=== PATIENT | male | born 1970 | race Caucasian/White ===

== ENCOUNTER 2017-06-24 16:19 | Emergency (ER) | payer OTHER ==
[~2017-06-24] VITALS: Ht 185.4 cm; Wt 95.3 kg
[~2017-06-24 16:19] MED LIST: BIAXIN500 MG PO; CLARITIN10 MG PO; MOTRIN800 MG PO; ULTRAM50 MG PO
[2017-06-24 17:32] LABS: BASO % 0.1 % (0.0-1.0); EOS # 0.1 10*3/uL (0.0-0.4); EOS % 1.5 % (1.0-4.0); HEMOGLOBIN 13.4 g/dl (14.0-18.0); LYMPH # 1.8 10*3/uL (1.3-4.4); LYMPH % 25.7 % (27.0-41.0); MEAN CELL VOLUME 89.2 fl (80.0-94.0); MEAN CORPUSCULAR HGB 30.7 pg (27.0-31.0); MEAN CORPUSCULAR HGB CONC 34.4 g/dl (33.0-37.0); MEAN PLATELET VOLUME 9.8 fl (9.6-12.3); MONO # 0.4 10*3/uL (0.1-1.0); MONO % 5.1 % (3.0-9.0); NEUT # 4.6 10*3/uL (2.3-7.9); NEUT % 67.3 % (47.0-73.0); PLATELET COUNT AUTOMATED 237 10*3/uL (130-400); RED BLOOD COUNT 4.37 10*6/uL (4.50-5.90); RED CELL DISTRI WIDTH 13.9 % (0-14.5); WHITE BLOOD COUNT 6.9 10*3/uL (4.8-10.8)
[2017-06-24 17:47] LABS: ALBUMIN 3.4 gm/dl (3.1-4.5); ALKALINE PHOSPHATASE 100 U/L (45-117); BUN 13 mg/dl (7-24); CHLORIDE 105 mmol/L (98-107); CREATININE 0.79 mg/dL (0.70-1.30); POTASSIUM 3.7 mmol/L (3.5-5.1); SGOT/AST 15 IU/L (3-35); SGPT/ALT 27 U/L (12-78); SODIUM 139 mmol/L (136-145)
== END 2017-06-24 19:42 | disposition home or self-care (01) ==
LOC: ED 16:19
PROVIDERS: Nurse Practitioner Family
DX: L02.415 Cutaneous abscess of right lower limb (principal); E11.9 Type 2 diabetes mellitus without complications; Z98.890 Other specified postprocedural states

== ENCOUNTER 2017-09-19 10:29 | Emergency (ER) | payer OTHER ==
[~2017-09-19] VITALS: Ht 185.4 cm; Wt 90.7 kg
[2017-09-19] MEDS ORDERED: GLYBURIDE5 MG PO (10:35)
[2017-09-19] MEDS ORDERED: NAPROSYN500 MG PO (11:16)
== END 2017-09-19 12:08 | disposition home or self-care (01) ==
LOC: ED 10:29
DX: S93.601A Unspecified sprain of right foot, initial encounter (principal); R03.0 Elevated blood-pressure reading, without diagnosis of hypertension; X50.1XXA Overexertion from prolonged static or awkward postures, initial encounter; Y93.89 Activity, other specified; Y92.89 Other specified places as the place of occurrence of the external cause; Y99.8 Other external cause status

== ENCOUNTER 2017-10-26 17:58 | Emergency (ER) | payer OTHER ==
[~2017-10-26] VITALS: Ht 185.4 cm; Wt 90.7 kg
[~2017-10-26 17:58] MED LIST changes: +GLYBURIDE5 MG PO; +NAPROSYN500 MG PO
[2017-10-26] MEDS ORDERED: EPIPEN 2-P0.3 MG/0.3 IJ (18:16)
[2017-10-26] MEDS ORDERED: CLARITIN10 MG PO (18:16)
[2017-10-26] MEDS ORDERED: PEPCID AC20 MG PO (18:16)
[2017-10-26] MEDS ORDERED: DELTASONE20 M1 PO (18:16)
== END 2017-10-26 18:27 | disposition home or self-care (01) ==
LOC: ED 17:58
DX: T63.441A Toxic effect of venom of bees, accidental (unintentional), initial encounter (principal); R22.0 Localized swelling, mass and lump, head; E11.9 Type 2 diabetes mellitus without complications; I10 Essential (primary) hypertension; Z87.891 Personal history of nicotine dependence; Z91.030 Bee allergy status; Y92.89 Other specified places as the place of occurrence of the external cause

== ENCOUNTER 2017-11-19 06:44 | Inpatient (IN) | payer OTHER ==
[~2017-11-19] VITALS: Ht 185.4 cm; Wt 96.2 kg
[2017-11-19] VITALS (18 sets, daily range): BP systolic 132–199; BP diastolic 61–97
--- NOTE | ~2017-11-19 | O ---
[place], [place] OPERATIVE NOTE NAME: MATTI WILLIS UNIT #: [id number] ROOM: 525 DOCTOR: MIN SELLERS MD BIRTHDATE: [birth year] DOS: 11/19/2017 PREOPERATIVE DIAGNOSIS: Acute cholecystitis. POSTOPERATIVE DIAGNOSIS: Acute cholecystitis. PROCEDURE: Laparoscopic cholecystectomy. SURGEON: Min Sellers MD [employer] INSTALLER: ALLIE. ANESTHESIA: General with endotracheal intubation. INDICATIONS: This is a 47-year-old male admitted with right upper quadrant pain. Ultrasound and labs show acute cholecystitis. It was decided to take the patient to the operating room for the above-mentioned procedure. The procedure and its complications were explained to the patient in detail preoperatively. Complications that were discussed included but were not limited to bleeding, infection, hematoma/seroma/abscess formation, biloma formation, prolonged postoperative pain, damage to underlying vital structures, inadvertent injury to common bile duct and he agreed to proceed. DESCRIPTION OF PROCEDURE: After identifying the patient, the patient was brought to the operating suite and laid in the supine position. After induction of general anesthesia, a timeout procedure was called and the parts were then painted and draped in the usual sterile fashion. An incision below the umbilicus was made in a transverse fashion. The skin and the subcutaneous tissue incised in the line of the incision. The fascia was incised and 2 stay sutures with 0 Vicryl were taken on either side. The peritoneum was opened and 12 mm Aide port was introduced. A pneumoperitoneum was created. Under direct vision, an epigastric incision of 10 mm and two 5 mm incisions were made in the right upper quadrant and appropriate size ports were introduced. The gallbladder was found to be distended and edematous. Approximately 30 mL of bile was aspirated. The gallbladder was retracted superiorly and laterally. The cystic duct and the cystic artery were carefully dissected until the triangle of Calot was identified and the critical view of safety was obtained. Thereafter, each of these structures were clipped 3 times and cut between the first and the second clip. The gallbladder was then removed from the bed of the gallbladder with the help of electrocautery. It was placed in an EndoCatch bag and removed from the peritoneal cavity and sent for histopathological diagnosis. Thereafter, the liver bed was inspected for bleeding and there was no bleeding seen. The spilled blood and fluid were sucked away and after hemostasis was confirmed, the right upper quadrant and epigastric ports were removed and there was no bleeding seen. The umbilical port was also removed and 2 stay sutures were tied together and an additional stitch was taken in order to close the fascia. Thereafter, local anesthesia was infiltrated in all the 4 incisions (1% plain lidocaine) and the incision was then approximated with help of 4-0 Vicryl in a subcuticular running fashion. Dressings were placed. The patient tolerated the procedure well and was extubated uneventfully and brought back to [place], [place] OPERATIVE NOTE NAME: MATTI WILLIS UNIT #: [id number] ROOM: [facility] DOCTOR: MIN SELLERS MD BIRTHDATE: [birth year] the recovery room in stable fashion. There were no complications. Dr. Min Sellers, the attending surgeon, was present throughout the operating case. Min Sellers MD CM:OPRECORD:OPERATIVE NOTE [id number] MIN SELLERS MD 11/19/17 1441 interface
[~2017-11-19 06:44] MED LIST changes: +DELTASONE20 M1 PO; +EPIPEN 2-P0.3 MG/0.3 IJ; +PEPCID AC20 MG PO
[2017-11-19 07:43] LABS: BASO % 0.2 % (0.0-1.0); EOS # 0.1 10*3/uL (0.0-0.4); EOS % 0.8 % (1.0-4.0); HEMOGLOBIN 12.7 g/dl (14.0-18.0); LYMPH # 1.7 10*3/uL (1.3-4.4); LYMPH % 17.1 % (27.0-41.0); MEAN CELL VOLUME 89.2 fl (80.0-94.0); MEAN CORPUSCULAR HGB 29.8 pg (27.0-31.0); MEAN CORPUSCULAR HGB CONC 33.4 g/dl (33.0-37.0); MONO # 0.4 10*3/uL (0.1-1.0); MONO % 4.3 % (3.0-9.0); NEUT # 7.7 10*3/uL (2.3-7.9); NEUT % 77.2 % (47.0-73.0); PLATELET COUNT AUTOMATED 229 10*3/uL (130-400); RED BLOOD COUNT 4.26 10*6/uL (4.50-5.90); RED CELL DISTRI WIDTH 14.2 % (0-14.5); WHITE BLOOD COUNT 9.9 10*3/uL (4.8-10.8)
[2017-11-19 07:51] LABS: ACT PARTIAL THROMBO TIME 23.9 SECONDS (20.8-31.5)
[2017-11-19 07:57] LABS: ALBUMIN 3.3 gm/dl (3.1-4.5); ALKALINE PHOSPHATASE 98 U/L (45-117); BUN 10 mg/dl (7-24); CHLORIDE 110 mmol/L (98-107); LIPASE 211 U/L (73-393); POTASSIUM 3.8 mmol/L (3.5-5.1); SGOT/AST 8 IU/L (3-35); SGPT/ALT 21 U/L (12-78); SODIUM 138 mmol/L (136-145); TOTAL PROTEIN 6.8 gm/dL (6.4-8.2); TROPONIN I < 0.015 ng/ml (<0.045)
[2017-11-19 08:50] LABS: BILIRUBIN NEGATIVE (NEGATIVE); BLOOD TRACE-INTACT (NEGATIVE); CLARITY CLEAR (CLEAR); COLOR YELLOW (YELLOW); GLUCOSE NEGATIVE (NEGATIVE); KETONE NEGATIVE (NEGATIVE); LEUKO ESTERASE NEGATIVE (NEGATIVE); NITRITE NEGATIVE (NEGATIVE); SPECIFIC GRAVITY >= 1.030 (1.005-1.030); UROBILINOGEN 0.2 E.U./dl (0.2-1.0)
[2017-11-19 09:08] LABS: BACTERIA 1+; MUCOUS 1+
[2017-11-19] MEDS ORDERED: ZESTRIL2.5 MG PO (10:53)
[2017-11-20] VITALS: BP 148/72
[2017-11-20 07:28] LABS: BASO % 0.2 % (0.0-1.0); EOS # 0.1 10*3/uL (0.0-0.4); EOS % 1.2 % (1.0-4.0); HEMATOCRIT 38.4 % (42.0-52.0); HEMOGLOBIN 12.4 g/dl (14.0-18.0); LYMPH # 1.7 10*3/uL (1.3-4.4); LYMPH % 16.7 % (27.0-41.0); MEAN CELL VOLUME 92.1 fl (80.0-94.0); MEAN CORPUSCULAR HGB 29.7 pg (27.0-31.0); MEAN CORPUSCULAR HGB CONC 32.3 g/dl (33.0-37.0); MEAN PLATELET VOLUME 10.3 fl (9.6-12.3); MONO # 0.5 10*3/uL (0.1-1.0); MONO % 5.4 % (3.0-9.0); NEUT # 7.5 10*3/uL (2.3-7.9); NEUT % 76.1 % (47.0-73.0); PLATELET COUNT AUTOMATED 211 10*3/uL (130-400); RED BLOOD COUNT 4.17 10*6/uL (4.50-5.90); RED CELL DISTRI WIDTH 14.6 % (0-14.5); WHITE BLOOD COUNT 9.9 10*3/uL (4.8-10.8)
[2017-11-20 07:57] LABS: ALBUMIN 3.2 gm/dl (3.1-4.5); BUN 8 mg/dl (7-24); CHLORIDE 110 mmol/L (98-107); CHOLESTEROL 185 mg/dL (<200); CREATININE 0.75 mg/dL (0.70-1.30); PHOSPHOROUS 1.9 mg/dL (2.5-4.9); POTASSIUM 3.7 mmol/L (3.5-5.1); SGOT/AST 54 IU/L (3-35); SGPT/ALT 59 U/L (12-78); SODIUM 142 mmol/L (136-145); TOTAL PROTEIN 6.5 gm/dL (6.4-8.2)
[2017-11-20 08:00] VITALS: BP 151/77
[2017-11-20 08:03] LABS: ALKALINE PHOSPHATASE 92 U/L (45-117); FREE T4 1.09 ng/dl (0.76-1.46); HDL CHOLESTEROL 35 mg/dl (40-60); LDL CHOLESTEROL 123 mg/dL (9-159); TRIGLYCERIDES 136 mg/dl (<150); VLDL CHOLESTEROL 27 mg/dL (6-40)
[2017-11-20 08:25] LABS: VITAMIN D, 25-HYDROXY 17.6 ng/mL (30-100)
[2017-11-20] MEDS ORDERED: LISINOPRIL5 MG PO (10:47)
[2017-11-20] MEDS ORDERED: COLACE100 MG PO (10:47)
[2017-11-20] MEDS ORDERED: VITAMIN D-32000 UNI1 PO (15:55)
== END 2017-11-20 12:20 | disposition home or self-care (01) | DRG 419 ==
LOC: ED 06:44 → 5E 09:06 → EDHOLD 09:06 → 5E 09:47
PROVIDERS: Emergency Medicine; Emergency Medicine Emergency Medical Services; Surgery
PROC: 0FT44ZZ Resection of Gallbladder, Percutaneous Endoscopic Approach (ICD-10-PCS; principal; 2017-11-19)
DX: K80.01 Calculus of gallbladder with acute cholecystitis with obstruction (principal); E11.65 Type 2 diabetes mellitus with hyperglycemia; K76.0 Fatty (change of) liver, not elsewhere classified; N20.0 Calculus of kidney; R03.0 Elevated blood-pressure reading, without diagnosis of hypertension; R00.1 Bradycardia, unspecified; Z91.030 Bee allergy status; Z79.899 Other long term (current) drug therapy; Z83.3 Family history of diabetes mellitus; Z82.49 Family history of ischemic heart disease and other diseases of the circulatory system

== ENCOUNTER → 2021-07-10 | Outpatient (CLI) | payer OTHER ==
[~2021-07-10] MED LIST changes: +COLACE100 MG PO; +LISINOPRIL5 MG PO; +VITAMIN D-32000 UNI1 PO; +ZESTRIL2.5 MG PO
== END ==
LOC: COVID19 15:51
PROVIDERS: ATTEND Internal Medicine
DX: U07.1 COVID-19 (principal)